=== PATIENT | female | born 1955 | race Caucasian/White ===

== ENCOUNTER 2016-12-28 15:57 | Observation (INO) ==
[2016-12-28] MEDS ORDERED: *HR* HYDROmorphone (PF) 1 MG/ML SYRINGE IM ONE ×2 (16:05→17:57)
[2016-12-28] MEDS ORDERED: Ibuprofen 600 MG TABLET PO ONE (16:05)
[2016-12-28] MEDS ORDERED: Ondansetron ODT 4 MG TAB.RAPDIS SL ONE (16:51)
--- NOTE | 2016-12-28 16:54 | Emergency Department Note ---
Disposition Clinical Impression: Intractable back pain, Paresthesia of right lower extremity Low back pain Qualifiers: Chronicity: chronic Back pain laterality: right Sciatica presence: with sciatica Sciatica laterality: sciatica of right side Qualified Code(s): M54.41 - Lumbago with sciatica, right side Disposition: Admitted As Inpatient Condition: Good Instructions: Chronic Back Pain (ED) Reasons to Return/Additional Instructions: Please return immediately for any new or worsening symptoms such as pain, fever , weakness or numbness, or incontinence. Otherwise, please take your medications as directed and follow-up with bone and joint within 1-2 weeks for recheck. Prescriptions: Cyclobenzaprine [Flexeril] 10 mg PO TID PRN #15 tablet PRN Reason: pain Referrals: NO,PCP [Non-Partnered Physician] - Leeanna Weaver MD [Partnered Physician] - Forms: ED Satisfaction Letter Time of Disposition: 17:41 General Adult HPI - General Chief complaint: ED Extremity Problem,Nontraumatic Stated complaint: Right hip pain Time Seen by Provider: 12/28/16 16:04 Source: patient, family, EMS Mode of arrival: ambulatory Limitations: no limitations Nursing Notes Reviewed: Yes Vital Signs Reviewed: Yes - History of Present Illness HPI Narrative: 61-year-old female past medical history of diabetes presents with acute on chronic low back pain and right hip pain that radiates down her right lower extremity. She states that the pain has been going on for over a year intermittently and has been worse for the last couple weeks since she came back from vacation. She states it is much more severe today. It is worse with walking and palpation of the low back. It is not associated with any chest pain , shortness of breath, fever or chills, cough, vision problems, weakness, abdominal pain, incontinence of stool or urine. She denies any calf pain or swelling. She notes chronic mild diabetic foot neuropathy along with worsened paresthesias to the right leg over the last 24 hours. She notes that her right leg is slightly longer than her left so she thought she could improve her symptoms yesterday by walking around with issue only on her left foot. She believes this may have worsened her symptoms. Denies any falls or other injuries. She states that she has had an x-ray for this in the remote past but no advanced imaging. No history of cancer. No history of aneurysm. Pain Scale: 10 - Related Data Home Medications Medication Instructions Recorded Confirmed Albuterol Inhaler 01/19/16 Glipizide 01/19/16 01/19/16 Metformin 01/19/16 Previous Rx's Medication Instructions Recorded Sulfamethoxazole/Trimeth DS 1 each PO BID #14 tablet 01/19/16 [Bactrim DS] Cyclobenzaprine [Flexeril] 10 mg PO TID PRN #15 tablet 12/28/16 Allergies Allergy/AdvReac Type Severity Reaction Status Date / Time codeine Allergy Rash Verified 12/28/16 16:10 All systems ED: reviewed and negative except as stated. Past Medical History - Past Medical History Attestation: Yes The following information was validated with the patient. Source: patient Medical history: Reports: DVT, diabetes, hypertension Psychiatric history: Reports: no psych history - Social History Smoking Status: Never smoker Smokeless Tobacco Status: No Alcohol use: Reports: none Drug use: Reports: none Physical Exam - Head Head exam: atraumatic, normocephalic, normal inspection - Eye Eye exam: Present: normal appearance, PERRL, EOMI - ENT ENT exam: normal exam, normal oropharynx, mucous membranes moist - Neck Neck exam: Present: normal inspection, full ROM, trachea midline - Chest Chest inspection: Present: normal inspection, symmetric chest wall rise - Respiratory Respiratory exam: Clear to auscultation bilaterally without wheezes rales or rhonchi Cardiovascular Cardiovascular exam: Present: regular rate, normal rhythm, normal heart sounds - Abdominal Exam Abdominal exam: Present: soft, Non-Tender. Absent: tenderness, distention, guarding, rebound, rigidity - Extremities Exam Shows leg raise positive on the right. There is no calf tenderness. Normal motor and sensory exam in the bilateral legs. Normal reflexes bilaterally. Exam is limited by obesity, there is no definite hip tenderness. - Back Exam Back exam: Present: normal inspection, full ROM. Mild diffuse lumbar tenderness without obvious deformity. - Neurological Exam Neurological exam: Present: alert, oriented X3, CN II-XII intact - Psychiatric Psychiatric exam: Present: normal affect, normal mood - Skin Skin exam: Present: warm, dry, intact, normal color - General Limitations: no limitations General appearance: alert, in no apparent distress Course - Reevaluation(s) Reevaluation #1: Symptoms improved with medications. Lumbar CT shows disc protrusion to the right at L4-L5 that is likely consistent with the patient's sciatic on the right side. Hip x-ray is grossly normal. Although patient's pain improved momentarily, the patient was unable to ambulate secondary to paresthesias and worsening pain when she tried to walk. Patient was given option of return home with steroids and muscle relaxers versus admission to the hospital for intractable pain and inability to walk. Patient does not feel safe to return home, family is present in the room states that he would not be able to help her around the house. Patient will be admitted to the hospitalist for further care and evaluation of her symptoms with possible MRI in the future. Time: 17:41 Vital Signs Temperature 98.3 F 12/28/16 15:59 Pulse Rate 84 12/28/16 15:59 Respiratory Rate 18 12/28/16 15:59 Blood Pressure 174/74 12/28/16 15:59 O2 Sat by Pulse Oximetry 97 12/28/16 15:59 Temperature 98.3 F 12/28/16 15:59 Pulse Rate 81 12/28/16 19:21 Respiratory Rate 18 12/28/16 19:21 Blood Pressure 122/62 12/28/16 19:21 O2 Sat by Pulse Oximetry 94 12/28/16 19:21 Oxygen Delivery Oxygen Delivery Room Air Medical Decision Making - Medical Records Medical records reviewed: Yes I reviewed the patient's medical records. - Lab Data Lab results reviewed: Yes I reviewed the patient's lab results. Lab Results 12/28/16 12/28/16 Range/Units 16:48 17:00 POC Glucose 141 H (58-89) Urine Color Yellow (Yellow) Urine Clarity Clear (Clear) Urine pH 6.5 (5.0-8.0) pH Units Ur Specific [place] 1.014 (1.010-1.025) Urine Protein Negative (Neg-Trace) mg/dL Urine Glucose (UA) Normal (Normal) mg/dL Urine Ketones Negative (Negative) mg/dL Urine Blood Negative (Negative) Urine Nitrite Negative (Negative) Urine Bilirubin Negative (Negative) Urine Urobilinogen Normal (Normal) mg/dL Ur Leukocyte Esterase Negative (Negative) Ur Culture Indicated? NO (NO) - Radiology Data Radiology results reviewed: Yes I reviewed the patient's radiology results. Attestation Statement - Attestation Attestation: I, Kai Esquivel, examined this patient and my medical decision-making was reviewed with the MACHINE TURNER/PA/Advanced Practice Nurse/Resident Physician. I agree with the documented findings, disposition and treatment plan as described except to the extent set forth below. 61-year-old female presents with concerns of increasing back pain and paresthesias of the right lower extremity. Patient states the symptoms have been worsening over the past month, family states that she has had a progressive decline of her mobility at home. Patient states she has had similar back pain back pain causing symptoms over the past few years intermittently. She states she has been unable to follow-up with her primary care provider and the chiropractor secondary to her morbid obesity. No trauma or cumulative trauma, no recent unexplained weight loss, immunosuppression, unexplained fever, IVDU, prolonged steroids, focal neurologic deficits with progress for disabling symptoms or perineal paresthesias or incontinence, and no history of AAA. CT of the lumbar spine shows possible disc herniation consistent with the patient's symptoms. Patient was given multiple doses of IV pain medication to control her symptoms. Patient states her pain did not improve however upon trying to ambulate she was unable to bear weight on the right lower extremity secondary to pain and paresthesias. Patient will be admitted to the hospital for further care and evaluation.
[2016-12-28 17:36] LABS: Bilirubin,Urine Negative (Negative); Blood,Urine Negative (Negative); Clarity,Urine Clear (Clear); Color,Urine Yellow (Yellow); Glucose,Urine (UA) Normal (Normal); Ketones,Urine Negative (Negative); Leukocyte Esterase,Urine Negative (Negative); Nitrite,Urine Negative (Negative); PH,Urine 6.5 pH Units (5.0-8.0); Protein,Urine Negative (Neg-Trace); Specific Gravity,Urine 1.014 (1.010-1.025); Urobilinogen,Urine Normal (Normal)
[2016-12-28] MEDS ORDERED: predniSONE 20 MG TABLET PO ONE (17:56)
[2016-12-28 19:44] LABS: Basophils % 0.3 %; Eosinophils # 0.1 K/mcL (0.0-0.6); Hematocrit 40.2 % (35.3-44.9); Hemoglobin 13.2 g/dL (11.5-15.4); Immature Granulocytes % 0.3 % (0-4); Immature Platelets 4.1 % (1.1-6.1); Lymphocytes # 2.8 K/mcL (0.6-4.6); Mean Corpuscular HGB Conc 32.8 g/dL (31.6-35.5); Mean Corpuscular Hemoglobin 28.9 pg (28.0-33.3); Mean Platelet Volume 10.2 fL (9.4-12.4); Monocytes # 0.6 K/mcL (0.0-1.3); Monocytes % 5.1 %; Neutrophils # 8.4 K/mcL (1.6-8.9); Platelet Count 311 K/mcL (140-400); Red Blood Count 4.57 M/mcL (3.82-4.97); Red Cell Distribution Width 13.7 % (11.5-14.5); Segmented Neutrophils % 70.3 %
[2016-12-28 19:56] LABS: BUN/Creatinine Ratio 21 (6-26); Blood Urea Nitrogen 14 mg/dL (7-20); Calcium 9.7 mg/dL (8.6-10.8); Carbon Dioxide 26 mEq/L (19-29); Chloride 104 mEq/L (98-109); Glucose 150 mg/dL (70-99); Osmolality,Calculated 291 (280-300); Sodium 139 mEq/L (136-145); eGFR For African Americans > 60 (> 60); eGFR For Non-African Americans > 60 (> 60)
[2016-12-28] MEDS ORDERED: Naloxone 0.4 MG/ML INJ IVP PRN (21:21)
[2016-12-28] MEDS ORDERED: Ondansetron 4 MG/2 ML VIAL IVP PRN (21:21)
[2016-12-28] MEDS ORDERED: *HR* Morphine 2 MG/ML SYRINGE IVP PRN (21:21)
[2016-12-28] MEDS ORDERED: Dextrose Gel 15 GM PO PRN ×2 (21:28)
[2016-12-28] MEDS ORDERED: *HR* Dextrose 50 % in Water (Syg) 50 ML SYRINGE IVP PRN (21:28)
[2016-12-28] MEDS ORDERED: D5% in Water 1,000 ML IVC PRN (21:28)
--- NOTE | 2016-12-28 21:28 | Internal Med History&Physical ---
Date of Encounter: 12/28/16 Time of Encounter: 21:30 Assessment and Plan (1) Intractable back pain Current visit: Yes Status: Acute Acute on chronic back pain - radiating to right lower extremity Place in observation for pain management CT of the lumbar spine negative for acute fracture but show multilevel degenerative disc disease continue IV morphine when necessary, IV Solu-Medrol and muscle relaxants Hip x-ray negative for acute arches abnormality but does show multifocal degenerative disease (2) Sciatica of right side Current visit: Yes Status: Acute Acute on chronic lower back pain Multilevel degenerative disc disease (3) Type 2 diabetes mellitus Current visit: Yes Status: Chronic Family diabetes, insulin-dependent, hyperglycemia Sliding-scale insulin, glucose checks, Levemir Qualifiers: Diabetes mellitus complication status: without complication Diabetes mellitus fdc insulin use: with terminal manager use Qualified Code(s): E11.9 - Type 2 diabetes mellitus without complications; Z79.4 - retirement (current) use of insulin (4) Morbid obesity with BMI of 50.0-59.9, adult Current visit: Yes Status: Chronic (5) DVT prophylaxis Current visit: Yes Status: Acute Continue heparin subcutaneous Internal Medicine - H&P: HPI Chief complaint: Low back pain and spasm Admitted From: Emergency Dept History of present illness: Ms. Ponce is a 61 year old female with past medical history of hypertension, asthma and diabetes. She was initially we will complains of occasional chronic low back pain and right hip pain. Patient states the pain radiates down her right lower extremity. Patient does have chronic back pain and has been worsening over the past few weeks to months. Patient states this episode started last night and has gradually worsened. She states she has had difficulty walking because of the pain in his arm and unable to stand up. Patient denies incontinence and stool or urine. Denies calf pain or swelling. She does have chronic paresthesias. patient apparently uses a special shoe when she does walk this is because her right leg is slightly warmer than the left. She rates the pain about 8/10 intensity. It radiates to the left side of back and down her lower extremity. Pain and spasm and tenderness are mainly on the right lower back. No relieving factors. Aggravated with movement and while standing up. No other associated symptoms. On examination patient is awake and alert. Not in any distress. She is able to provide all history. No family members. Patient is being placed in observation for intractable back pain and sciatica. She will be on IV morphine as needed and also IV Solu- Medrol and Flexeril. Patient has been explained about her condition and plan of care. Understood and agreed. No unanswered questions. CODE STATUS full code. Past Med Surg Social Fam HX - Past Medical History Medical history: asthma, diabetes, hypertension Psychiatric history: no psych history - Past Surgical History Surgical History: non-contributory - Social History Smoking Status: Never smoker Smokeless Tobacco Status: No Alcohol use: none Drug use: none - Family History Mother Hx Family Cardiac Disorders: Yes Internal Medicine - H&P: Meds Albuterol Sulfate [Albuterol Inhaler] 2 puff IH Q4HR PRN 01/19/16 [History] glipiZIDE [Glipizide] 10 mg PO BIDWM 01/19/16 [History] metFORMIN [Glucophage] 1,000 mg PO BIDWM 01/19/16 [History] Calcium Carbonate [Tums] 1,000 mg PO Q4HR PRN 12/28/16 [History] Insulin Glargine [Lantus] 38 unit SQ BID 12/28/16 [History] Losartan/HCTZ [Hyzaar 50-12.5 Tablet] 1 each PO HS 12/28/16 [History] Potassium 12/28/16 [History] Allergies codeine Allergy (Verified 12/28/16 16:10) Rash All Systems PM: A 10-system review of systems was performed and is negative for pertinent findings except as documented above in the HPI. - Constitutional Constitutional: as per HPI, no fatigue - EENT Eyes: no blurry vision - Cardiovascular Cardiovascular ROS IM: no chest pain, no diaphoresis, no dyspnea, no dyspnea on exertion, no lightheadedness, no orthopnea - Respiratory Respiratory: no cough, no dyspnea, no hemoptysis, no dyspnea on exertion, no chest congestion - Gastrointestinal Gastrointestinal: no abdominal pain, no constipation, no cramping, no diarrhea, no vomiting - Musculoskeletal Musculoskeletal ROS IM: arthralgias, back pain, myalgias, stiffness - Neurological Neurological ROS: no abnormal gait, no abnormal speech, no dizziness, no focal weakness, no loss of vision - Constitutional Vitals: Temp Pulse Resp BP Pulse Ox 97.7 F 81 18 126/77 94 12/28/16 21:10 06/25/17 21:10 12/28/16 21:10 12/28/16 21:10 12/28/16 21:10 General appearance: Present: A&O X 3, morbidly obese, pleasant, no acute distress, answers questions appropriately Exam: Patient lying flat in bed and is in discomfort due to back pain - Head Head exam: Present: atraumatic - Eye Eye exam: Present: EOMI - Neck Neck exam general surgery: Present: supple - Respiratory Respiratory exam: Present: CTAB. Absent: rales, rhonchi, wheezes - Cardiovascular Cardiovascular exam: Present: RRR, +S1, +S2 - GI/Abdominal GI/Abdominal exam: Present: soft. Absent: distended, firm, guarding, tenderness Additional comments: Obese - Extremities Exam Extremities exam: Present: full ROM, pedal edema (Mild), radial pulses palpable and symetrical. Absent: cyanotic, tenderness - Back Exam Back exam: Present: CVA tenderness (R), muscle spasm, paraspinal tenderness, tenderness, vertebral tenderness - Neurological Exam Neurological exam: Present: alert, oriented X3, no focal deficits Internal Med - H&P Results - Labs CBC & Chem 7: 12/28/16 19:37 12/28/16 19:37
[2016-12-28] MEDS ORDERED: INSULIN GLARGINE 38 UNIT SQ SCH (21:30)
[2016-12-28] MEDS: MethylPREDNISolone 40 MG/ML VIAL IVP SCH (23:37)
[2016-12-29] MEDS: Acetaminophen 325 MG TABLET PO PRN ×2 (03:03→08:15)
[2016-12-29 04:10] LABS: Basophils % 0.2 %; Hematocrit 40.4 % (35.3-44.9); Hemoglobin 13.5 g/dL (11.5-15.4); Immature Granulocytes % 0.7 % (0-4); Lymphocytes # 1.4 K/mcL (0.6-4.6); Lymphocytes % 12.2 %; Mean Corpuscular HGB Conc 33.4 g/dL (31.6-35.5); Mean Corpuscular Hemoglobin 29.6 pg (28.0-33.3); Mean Corpuscular Volume 88.6 fL (83.0-100.0); Mean Platelet Volume 10.7 fL (9.4-12.4); Monocytes # 0.1 K/mcL (0.0-1.3); Monocytes % 0.5 %; Neutrophils # 9.7 K/mcL (1.6-8.9); Platelet Count 276 K/mcL (140-400); Red Blood Count 4.56 M/mcL (3.82-4.97); Red Cell Distribution Width 13.9 % (11.5-14.5); Segmented Neutrophils % 86.4 %
[2016-12-29] MEDS: *HR* Heparin 5,000 UNIT/ML VIAL SQ SCH ×2 (06:17→17:33)
[2016-12-29] MEDS ORDERED: Ketorolac 15 MG/ML VIAL IVP ONE (06:35)
[2016-12-29] MEDS: MethylPREDNISolone 40 MG/ML VIAL IVP SCH ×2 (08:02→15:40)
[2016-12-29] MEDS: Insulin LISPRO 300 UNITS/3 ML VIAL SQ SCH ×3 (08:02→17:33)
[2016-12-29] MEDS: Famotidine 20 MG TABLET PO SCH ×2 (08:02→21:23)
[2016-12-29] MEDS: Insulin DETEMIR 100 UNIT/ML X5UNITS SQ SCH ×2 (10:04→21:25)
[2016-12-29] MEDS ORDERED: *HR* HYDROmorphone (PF) 1 MG/ML SYRINGE IVP ONE (10:12)
[2016-12-29] MEDS ORDERED: *HR* Morphine 2 MG/ML SYRINGE IVP PRN (14:28)
--- NOTE | 2016-12-29 14:29 | Internal Med Progress Note ---
Date of Encounter: 12/29/16 Time of Encounter: 14:29 - Assessment and plan (1) Intractable back pain Current Visit: Yes Status: Acute Assessment and plan: Acute on chronic worsening of lower back pain secondary to sciatica continue pain control MR L[facility] spine requested by Dr. Law. He will see the patient later today continue supportive care continue systemic steroids increase activity as tolerated (2) Sciatica of right side Current Visit: Yes Status: Chronic Assessment and plan: management as listed above (3) Hypertension Current Visit: Yes Status: Chronic Assessment and plan: BP within acceptable range continue home meds continue to monitor Qualifiers: Hypertension type: essential hypertension Qualified Code(s): I10 - Essential (primary) hypertension (4) DVT prophylaxis Current Visit: Yes Status: Acute Assessment and plan: Heparin sQ (5) Morbid obesity with BMI of 50.0-59.9, adult Current Visit: Yes Status: Chronic (6) Type 2 diabetes mellitus Current Visit: Yes Status: Chronic Assessment and plan: Noted to be hyperglycemic, likely secondary to steroid therapy will continue sliding scale insulin algorithm and closely monitor FS and BG Qualifiers: Diabetes mellitus complication status: without complication Diabetes mellitus role player insulin use: with nursing home use Qualified Code(s): E11.9 - Type 2 diabetes mellitus without complications; Z79.4 - intermediate (current) use of insulin - Subjective Interval history: Patient seen and examined with family present at bedside. Reports of having adequate pain relief with dilaudid. Reports of nausea with PO pain meds. CT L spine shows degenerative changes without any acute fractures. Dr. Law consulted for pain management. - Constitutional Vitals: Temp Pulse Resp BP Pulse Ox 97.5 F L 67 14 115/66 91 12/29/16 10:51 12/29/16 10:51 12/29/16 10:51 12/29/16 10:51 12/29/16 10:51 General appearance: Present: A&O X 3, morbidly obese, pleasant, no acute distress, answers questions appropriately - Head Head exam: Present: atraumatic, normocephalic - Eye Eye exam: Present: conjuntiva pink, sclera anicteric - Respiratory Respiratory exam: Present: CTAB. Absent: respiratory distress, wheezes - Cardiovascular Cardiovascular exam: Present: RRR, +S1, +S2. Absent: diastolic murmur, gallop, rubs, systolic murmur - GI/Abdominal GI/Abdominal exam: Present: distended (obese), normal bowel sounds, soft, no peritoneal signs. Absent: tenderness - Extremities Exam Extremities exam: Present: warm, radial pulses palpable and symetrical. Absent : calf tenderness, cyanotic, pedal edema - Neurological Exam Neurological exam: Present: alert, oriented X3, no focal deficits, strengths equal and symetr throughout. Absent: motor sensory deficit, pronater drift - Psychiatric Psychiatric exam: Present: normal affect, normal mood Internal Medicine: Result - Labs CBC & Chem 7: 12/29/16 03:54 12/28/16 19:37 Labs: Short CBC 12/29/16 Range/Units 03:54 WBC 11.2 H (4.3-11.1) K/mcL Hgb 13.5 (11.5-15.4) g/dL Hct 40.4 (35.3-44.9) % Plt Count 276 (140-400) K/mcL Neutrophils # 9.7 H (1.6-8.9) K/mcL Consult Discharge Plan - Plan Referrals: Emma Adler, [employer] [Primary Care Provider] -
[2016-12-29] MEDS: *HR* HYDROmorphone (PF) 1 MG/ML SYRINGE IVP PRN ×2 (15:40→19:55)
[2016-12-29] MEDS ORDERED: Losartan/HCTZ 50-12.5 TABLET PO SCH (21:00)
[2016-12-29] MEDS ORDERED: Insulin LISPRO 300 UNITS/3 ML VIAL SQ SCH ×2 (21:00)
[2016-12-30] MEDS: MethylPREDNISolone 40 MG/ML VIAL IVP SCH ×3 (00:03→17:17)
[2016-12-30] MEDS: *HR* HYDROmorphone (PF) 1 MG/ML SYRINGE IVP PRN ×3 (00:47→11:30)
[2016-12-30] MEDS: *HR* Heparin 5,000 UNIT/ML VIAL SQ SCH ×2 (05:51→17:19)
--- NOTE | 2016-12-30 07:26 | Pain Management History & Phys ---
Date of Encounter: 12/30/16 Time of Encounter: 07:26 Assessment and Plan (1) Right hip pain Current Visit: Yes Status: Acute The assessment and plan as outlined above was discussed with the patient who expressed understanding and agreement. All questions were answered. Evaluation the patient, I feel as though the acuity of the pain in the right sided buttocks and hip appears to be emanating from the sacroiliac joint. I understand the patient has suggestion of serious lumbar stenosis on CT scan, but classically she has right buttock pain rating to the right groin and anterior thigh. This strongly could suggest right intra-articular hip joint problems. An orthopedic consultation might be helpful (2) Sciatica of right side Current Visit: Yes Status: Chronic The assessment and plan as outlined above was discussed with the patient and/or family members who expressed understanding and agreement. All questions were answered. After discussing with the patient her CT scan results, I recommend the patient be seen in rehabilitation and then follow up with me as an outpatient whereby we could order a lumbar MRI (open) and move forward from there. At this time, injection or treatment within the hospital setting is not clearly warranted. History of Present Illness Chief complaint: Back pain, right hip pain HPI: Ms. Ponce is a 61 year old female Patient was seen today at bedside. The patient complained of 6 months worsening right low back and buttock pain rating to the right groin and right thigh. The pain is sharp and stabbing and worse with activity and relieved with rest. Patient was unable to take care of herself ultimately coming to the hospital where she was admitted for pain control. The patient was due to undergo a lumbar CT scan. It was recommended the patient undergo MRI but she has severe claustrophobia. She states today the pain is improved over time. The patient stood up to show me that she can now walk today, and when I asked her to show me how she can raise up on her toes, she had sudden knee pain and the patient sat down on the ground. I supported the patient, and the patient did not want is in the bed but she sat on the floor. She reports she was not injured. She is been reporting no bowel or bladder dysfunction associated with her pain. Past Med Surg Social Fam HX - Past Medical History Medical history: asthma, diabetes, hypertension Psychiatric history: no psych history - Past Surgical History Surgical History: non-contributory - Social History Smoking Status: Never smoker Smokeless Tobacco Status: No Alcohol use: none Drug use: none - Family History Mother Hx Family Cardiac Disorders: Yes Medications and Allergies Albuterol Sulfate [Albuterol Inhaler] 2 puff IH Q4HR PRN 01/19/16 [History] glipiZIDE [Glipizide] 10 mg PO BIDWM 01/19/16 [History] metFORMIN [Glucophage] 1,000 mg PO BIDWM 01/19/16 [History] Calcium Carbonate [Tums] 1,000 mg PO Q4HR PRN 12/28/16 [History] Insulin Glargine [Lantus] 38 unit SQ BID 12/28/16 [History] Potassium 99 mg PO DAILY 12/28/16 [History] Losartan/Hydrochlorothiazide [Hyzaar 100-25 Tablet] 1 tab PO DAILY 12/29/16 [ History] Allergies codeine Allergy (Verified 12/28/16 16:10) Rash Review of Systems - Constitutional Constitutional ROS IM: as per HPI - EENT Nose, mouth and throat: no headache(s), no neck pain, no neck trauma - Cardiovascular Cardiovascular ROS: no chest pain, no leg edema, no lightheadedness - Respiratory Respiratory: no pain on inspiration, no pain with cough - Gastrointestinal Gastrointestinal: no abdominal pain, no constipation, no diarrhea, no heartburn - Genitourinary Genitourinary ROS: no difficulty urinating, no flank pain, no urinary hesitancy - Musculoskeletal Musculoskeletal ROS: abnormal gait, radiating pain into limb - Integumentary Integumentary: no erythema, no lesions, no swelling - Neurological Neurological ROS: abnormal gait, radicular pain - Psychiatric Psychiatric general: no anxiety, no confusion, no depression - Hematologic/Lymphatic Hematologic/Lymphatic pediatric: no easy bleeding, no easy bruising Physical Exam Initial Vital Signs Temp Pulse Resp BP Pulse Ox 98.3 F 84 18 174/74 97 12/28/16 15:59 12/28/16 15:59 12/28/16 15:59 12/28/16 15:59 12/28/16 15:59 - General physical appearance General physical appearance: awake & oriented, moderate pain - Eyes Eye exam: normal ocular movement - Respiratory normal respiratory effort, clear to auscultation - Cardiovascular Cardiovascular exam: Present: NR, regular rhythm, no murmurs/rubs/gallops - Abdomen Abdomen: soft, non tender, bowel sounds - Neurologic normal coordination - Musculoskeletal Musculoskeletal: other (Patient examination difficult due to severe right hip pain) Results - Labs 12/30/16 07:46 12/30/16 07:46 Abnormal lab results WBC 11.2 K/mcL (4.3-11.1) H 12/29/16 03:54 Neutrophils # 9.7 K/mcL (1.6-8.9) H 12/29/16 03:54 Glucose 150 mg/dL (70-99) H 12/28/16 19:37 POC Glucose 239 (58-89) H 12/29/16 20:14 All other labs normal. - Imaging Additional studies: Reviewed the patient's CT of her lumbar spine. Suggestion of lumbar stenosis was reviewed per the radiology report.
[2016-12-30 08:35] LABS: BUN/Creatinine Ratio 20 (6-26); Blood Urea Nitrogen 17 mg/dL (7-20); Calcium 9.6 mg/dL (8.6-10.8); Carbon Dioxide 25 mEq/L (19-29); Chloride 102 mEq/L (98-109); Glucose 252 mg/dL (70-99); Osmolality,Calculated 300 (280-300); Phosphorous 3.2 mg/dL (2.3-4.7); Potassium 4.1 mEq/L (3.5-4.5); Sodium 140 mEq/L (136-145); eGFR For African Americans > 60 (> 60); eGFR For Non-African Americans > 60 (> 60)
[2016-12-30] MEDS: Insulin LISPRO 300 UNITS/3 ML VIAL SQ SCH ×3 (08:57→17:17)
[2016-12-30] MEDS: Famotidine 20 MG TABLET PO SCH (08:58)
[2016-12-30 09:01] LABS: Basophils % 0.2 %; Hematocrit 44.5 % (35.3-44.9); Hemoglobin 14.2 g/dL (11.5-15.4); Immature Granulocytes % 1.4 % (0-4); Lymphocytes % 20.8 %; Mean Corpuscular HGB Conc 31.9 g/dL (31.6-35.5); Mean Corpuscular Hemoglobin 28.8 pg (28.0-33.3); Mean Corpuscular Volume 90.3 fL (83.0-100.0); Mean Platelet Volume 10.9 fL (9.4-12.4); Monocytes # 0.4 K/mcL (0.0-1.3); Monocytes % 2.2 %; Platelet Count 400 K/mcL (140-400); Red Blood Count 4.93 M/mcL (3.82-4.97); Red Cell Distribution Width 13.8 % (11.5-14.5); Segmented Neutrophils % 75.4 %
[2016-12-30 09:04] LABS: Neutrophils # 14.5 K/mcL (1.6-8.9)
[2016-12-30] MEDS: Insulin DETEMIR 100 UNIT/ML X5UNITS SQ SCH (09:04)
--- NOTE | 2016-12-30 15:44 | Internal Med Progress Note ---
Date of Encounter: 12/30/16 Time of Encounter: 15:40 - Assessment and plan (1) Intractable back pain Current Visit: Yes Status: Acute Assessment and plan: Acute on chronic worsening of lower back pain secondary to sciatica pain much controlled now. MR [facility] spine requested by Dr. Law. however was not done as patient has severe claustropobia. continue supportive care continue systemic steroids, seen by pain mx, recommend dc to rehab, await social work increase activity as tolerated (2) Morbid obesity with BMI of 50.0-59.9, adult Current Visit: Yes Status: Chronic (3) Sciatica of right side Current Visit: Yes Status: Chronic Assessment and plan: management as listed above (4) Type 2 diabetes mellitus Current Visit: Yes Status: Chronic Assessment and plan: Noted to be hyperglycemic, likely secondary to steroid therapy will continue sliding scale insulin algorithm and closely monitor FS and BG Qualifiers: Diabetes mellitus complication status: without complication Diabetes mellitus intermediate card tender insulin use: with intermediate use Qualified Code(s): E11.9 - Type 2 diabetes mellitus without complications; Z79.4 - half-way (current) use of insulin (5) Hypertension Current Visit: Yes Status: Chronic Assessment and plan: BP within acceptable range continue home meds continue to monitor Qualifiers: Hypertension type: essential hypertension Qualified Code(s): I10 - Essential (primary) hypertension - Subjective Interval history: Patient seen at the bedside, admitted for intractable back pain, reports that the pain is better however comes back when she stands up or walks. Appreciate pain management recommendations. Patient to be discharged to rehabilitation once accepted. - Constitutional Vitals: Temp Pulse Resp BP Pulse Ox 97.8 F 65 17 150/81 96 12/30/16 10:58 12/30/16 10:58 12/30/16 10:58 12/30/16 10:58 12/30/16 10:58 General appearance: Present: A&O X 3, morbidly obese, pleasant, no acute distress, answers questions appropriately Exam: - Head Head exam: Present: atraumatic, normocephalic - Eye Eye exam: Present: conjuntiva pink, sclera anicteric - Respiratory Respiratory exam: Present: CTAB. Absent: respiratory distress, wheezes - Cardiovascular Cardiovascular exam: Present: RRR, +S1, +S2. Absent: diastolic murmur, gallop, rubs, systolic murmur - GI/Abdominal GI/Abdominal exam: Present: distended (obese), normal bowel sounds, soft, no peritoneal signs. Absent: tenderness - Extremities Exam Extremities exam: Present: warm, radial pulses palpable and symetrical. Absent : calf tenderness, cyanotic, pedal edema - Neurological Exam Neurological exam: Present: alert, oriented X3, no focal deficits, strengths equal and symetr throughout. Absent: motor sensory deficit, pronater drift - Psychiatric Psychiatric exam: Present: normal affect, normal mood Internal Medicine: Result - Labs CBC & Chem 7: 12/30/16 07:46 12/30/16 07:46 Labs: Short CBC 12/30/16 Range/Units 07:46 WBC 19.2 H D (4.3-11.1) K/mcL Hgb 14.2 (11.5-15.4) g/dL Hct 44.5 (35.3-44.9) % Plt Count 400 (140-400) K/mcL Neutrophils # 14.5 H (1.6-8.9) K/mcL BMP 12/30/16 07:46 Sodium 140 Potassium 4.1 Chloride 102 Carbon Dioxide 25 BUN 17 Creatinine 0.84 Glucose 252 H Calcium 9.6 Consult Discharge Plan - Plan Referrals: Emma Adler, [employer] [facility] [employer] [Primary Care Provider] -
--- NOTE | 2016-12-30 16:42 | Discharge Summary ---
Date of Encounter: 12/30/16 Time of Encounter: 16:37 - Discharge Diagnosis (1) Intractable back pain Priority: Primary Status: Acute (2) Morbid obesity with BMI of 50.0-59.9, adult Priority: Secondary Status: Chronic (3) Sciatica of right side Priority: Primary Status: Chronic (4) Type 2 diabetes mellitus Priority: Secondary Status: Chronic Qualifiers: Diabetes mellitus complication status: without complication Diabetes mellitus exterminator helper insulin use: with exterminator helper use Qualified Code(s): E11.9 - Type 2 diabetes mellitus without complications; Z79.4 - buttermaker helper (current) use of insulin (5) Hypertension Priority: Secondary Status: Chronic Qualifiers: Hypertension type: essential hypertension Qualified Code(s): I10 - Essential (primary) hypertension - Discharge Medications Prescriptions: OxyCODONE ER (12 HR) [OxyCONTIN] 10 mg PO Q8HR #90 tab.er.12h Home Medications: Albuterol Sulfate [Albuterol Inhaler] 2 puff IH Q4HR PRN 01/19/16 [History] glipiZIDE [Glipizide] 10 mg PO BIDWM 01/19/16 [History] metFORMIN [Glucophage] 1,000 mg PO BIDWM 01/19/16 [History] Calcium Carbonate [Tums] 1,000 mg PO Q4HR PRN 12/28/16 [History] Insulin Glargine [Lantus] 38 unit SQ BID 12/28/16 [History] Potassium 99 mg PO DAILY 12/28/16 [History] Losartan/Hydrochlorothiazide [Hyzaar 100-25 Tablet] 1 tab PO DAILY 12/29/16 [ History] OxyCODONE ER (12 HR) [OxyCONTIN] 10 mg PO Q8HR #90 tab.er.12h 12/30/16 [Rx] Allergies/Adverse Reactions: Allergies codeine Allergy (Verified 12/28/16 16:10) Rash Procedures/tests Complete & Pending: Procedures Performed prior 72 hours Category Date Time Status MR lumbar spine wo con [MR] Stat MRI 12/29/16 12:20 Ordered EKG [ECG 12 lead ECG] [ECG] Routine Y 12/28/16 21:25 Ordered Date of admission: 12/28/16 19:56 Primary care physician: Emma Adler CNP Consults: 12/28/16 21:23 Consult to Physical Therapy [CONS] Routine Comment: Evaluate, develop and implement POC Reason for Consult: pt eval Consult to Studio Artist [CONS] Routine Reason for SW Consult: d/c planning 12/29/16 08:20 Consult to Pain Management [CONS] Routine Consulting Provider: Lucien Khan Reason for Consult: intractable back pain Call Completed: Yes Consult to Physician [CONS] Routine Consulting Provider: Oneil Law Reason for Consult: intractable back pain Call Completed: Yes Discharging clinician: Blaine Fajardo Anticipated date of discharge: 12/30/16 - Patient Status Disposition: Transfer Inpatient Rehab Fac Condition: Good Functional capacity at discharge: independent ambulation Overall status at discharge: patient is progressing back to baseline - Discharge Instructions Follow Up With: Emma Adler, [employer] [Primary Care Provider] - - Diet and Activity Activity: as per physical therapy Diet: advance to your usual diet Interval History: Ms. Ponce is a 61 year old female with past medical history of hypertension, asthma and diabetes. She was initially we will complains of occasional chronic low back pain and right hip pain. Patient states the pain radiates down her right lower extremity. Patient does have chronic back pain and has been worsening over the past few weeks to months. she was admitted for Acute on chronic back pain - radiating to right lower extremity Placed in observation for pain management CT of the lumbar spine negative for acute fracture but show multilevel degenerative disc disease. pain maagement was consulted and recommneded inpt. rehab with MRI (which could not be done this time as she is claustrophobic). she reports that the pain is better when she lies still in the bed, she is being dc to rehab in stable condition Hospital course: Ms. Ponce is a 61 year old female - Time Spent with Patient Total time spent providing and/or coordinating discharge services: - Constitutional Vitals: Temp Pulse Resp BP Pulse Ox 98.1 F 64 16 117/66 97 12/30/16 16:11 12/30/16 16:11 12/30/16 16:11 12/30/16 16:11 12/30/16 16:11 General appearance: Present: A&O X 3, morbidly obese, pleasant, no acute distress, answers questions appropriately Exam: - Head Head exam: Present: atraumatic - Eye Eye exam: Present: EOMI - Neck Neck exam general surgery: Present: supple - Respiratory Respiratory exam: Present: CTAB. Absent: rales, rhonchi, wheezes - Cardiovascular Cardiovascular exam: Present: RRR, +S1, +S2 - GI/Abdominal GI/Abdominal exam: Present: soft. Absent: distended, firm, guarding, tenderness Additional comments: Obese - Extremities Exam Extremities exam: Present: full ROM, pedal edema (Mild), radial pulses palpable and symetrical. Absent: cyanotic, tenderness - Back Exam Back exam: Present: CVA tenderness (R), muscle spasm, paraspinal tenderness, tenderness, vertebral tenderness - Neurological Exam Neurological exam: Present: alert, oriented X3, no focal deficits
--- NOTE | 2016-12-30 16:44 | Physician Discharge Referral ---
ExtendedCare Referral Info Transfer To: [facility] Provider in Charge: marjorie alberts Institutional Level of Care: Intermediate - Diagnosis (1) Intractable back pain Status: Acute (2) Morbid obesity with BMI of 50.0-59.9, adult Status: Chronic (3) Sciatica of right side Status: Chronic (4) Type 2 diabetes mellitus Status: Chronic (5) Hypertension Status: Chronic - Transfer Medications Prescriptions: OxyCODONE ER (12 HR) [OxyCONTIN] 10 mg PO Q8HR #90 tab.er.12h Home Medications: Albuterol Sulfate [Albuterol Inhaler] 2 puff IH Q4HR PRN 01/19/16 [History] glipiZIDE [Glipizide] 10 mg PO BIDWM 01/19/16 [History] metFORMIN [Glucophage] 1,000 mg PO BIDWM 01/19/16 [History] Calcium Carbonate [Tums] 1,000 mg PO Q4HR PRN 12/28/16 [History] Insulin Glargine [Lantus] 38 unit SQ BID 12/28/16 [History] Potassium 99 mg PO DAILY 12/28/16 [History] Losartan/Hydrochlorothiazide [Hyzaar 100-25 Tablet] 1 tab PO DAILY 12/29/16 [ History] OxyCODONE ER (12 HR) [OxyCONTIN] 10 mg PO Q8HR #90 tab.er.12h 12/30/16 [Rx] Allergies/Adverse Reactions: Allergies codeine Allergy (Verified 12/28/16 16:10) Rash - Respiratory Orders Smoking Cessation: Smoking cessation has been advised. For more information, call the [place] Tobacco Quit Line at 0-358-DENC-NOW. - Advance Directives Code Status: Full Code - Mobility Orders Chair, Ambulate - Rehabiliation Orders Rehab Potential: Fair Rehab Orders: Evaluation for Physical Therapy, Evaluation for Occupational Therapy - Diet Orders Regular CERTIFICATION: I certify that the transfer of the above named patient to an Extended Care Facility is necessary for the continuing treatment of the diagnosis listed. The above information is true and accurate reflection of patient's current condition. Confidential - Redisclosure prohibited without a patient's written consent.
[2016-12-30] MEDS ORDERED: *HR* OxyCODONE Immed Rel 5 MG TABLET PO ONE (18:16)
[2016-12-30] MEDS ORDERED: Ondansetron ODT 4 MG TAB.RAPDIS SL ONE (18:39)
[2016-12-30 19:43] VITALS: BP 148/73
== END 2016-12-30 20:10 ==
LOC: EMEROO 15:57 → 3BNU 15:57 → SUATTDRO 19:56 → 3BNU 20:19
PROVIDERS: ADMIT Family Medicine; ATTEND Internal Medicine

== ENCOUNTER 2020-10-05 20:20 | Observation (INO) ==
[2020-10-05 21:23] LABS: Basophils # 0.1 K/mcL (0.0-0.2); Basophils % 0.5 %; Eosinophils # 0.3 K/mcL (0.0-0.6); Hemoglobin 14.2 g/dL (11.5-15.4); Immature Granulocytes % 0.4 % (0-4); Lymphocytes # 2.2 K/mcL (0.6-4.6); Lymphocytes % 20.7 %; Mean Corpuscular HGB Conc 32.3 g/dL (31.6-35.5); Mean Corpuscular Hemoglobin 29.3 pg (28.0-33.3); Mean Corpuscular Volume 90.9 fL (83.0-100.0); Mean Platelet Volume 10.7 fL (9.4-12.4); Monocytes # 0.9 K/mcL (0.0-1.3); Monocytes % 8.4 %; Platelet Count 312 K/mcL (140-400); Red Blood Count 4.84 M/mcL (3.82-4.97); Red Cell Distribution Width 13.7 % (11.5-14.5); White Blood Count 10.5 K/mcL (4.3-11.1)
[2020-10-05 21:41] LABS: BUN/Creatinine Ratio 18 (6-26); Blood Urea Nitrogen 12 mg/dL (8-23); Calcium 9.6 mg/dL (8.6-10.3); Carbon Dioxide 27 mEq/L (23-29); Chloride 104 mEq/L (98-107); Glucose 192 mg/dL (70-105); Magnesium 1.7 mg/dL (1.6-2.6); Osmolality,Calculated 291 (280-300); Phosphorous 2.5 mg/dL (2.7-4.5); Sodium 138 mEq/L (136-145); Troponin I < 0.03 ng/mL (< 0.04); eGFR For African Americans > 60 (> 60); eGFR For Non-African Americans > 60 (> 60)
[2020-10-05] MEDS: DilTIAZem 50 MG/50 ML IV.SOLN IVC SCH (21:46)
[2020-10-05] MEDS ORDERED: Naloxone 0.4 MG/ML INJ IVP PRN (22:06)
[2020-10-05] MEDS ORDERED: Melatonin 3 MG TABLET PO PRN (22:06)
[2020-10-05] MEDS ORDERED: Ondansetron 4 MG/2 ML VIAL IVP PRN (22:06)
[2020-10-05] MEDS ORDERED: Acetaminophen 325 MG TABLET PO PRN (22:06)
[2020-10-05] MEDS ORDERED: Perflutren Lipid Microsphere 1.3 ML in 0.9 % Sodium Chloride 8.7 ML IVP PRN (22:09)
[2020-10-05 22:31] LABS: INR 1.1; Prothrombin Time 12.2 Seconds (9.4-12.1)
[2020-10-05 22:33] LABS: Activated Partial Thrombo Time 31.5 Seconds (26.0-36.0)
[2020-10-05 22:41] LABS: Thyroid Stimulating Hormone 3.404 mcIU/mL (0.340-5.600)
[2020-10-06] MEDS: DilTIAZem 50 MG/50 ML IV.SOLN IVC SCH ×3 (01:08→09:06)
[2020-10-06 03:12] LABS: Alanine Aminotransferase 13 Units/L (7-52); Albumin 3.6 g/dL (3.5-5.7); Albumin/Globulin Ratio 1.2 (1.1-2.2); Alkaline Phosphatase 89 Units/L (34-104); Aspartate Amino Transferase 11 Units/L (13-39); BUN/Creatinine Ratio 21 (6-26); Bilirubin,Total 0.3 mg/dL (0.3-1.0); Blood Urea Nitrogen 14 mg/dL (8-23); Calcium 9.3 mg/dL (8.6-10.3); Carbon Dioxide 28 mEq/L (23-29); Chloride 103 mEq/L (98-107); Globulin 2.9 g/dL (2.4-3.5); Glucose 184 mg/dL (70-105); Magnesium 2.1 mg/dL (1.6-2.6); Osmolality,Calculated 293 (280-300); Phosphorous 3.3 mg/dL (2.7-4.5); Potassium 3.9 mEq/L (3.5-5.1); Sodium 139 mEq/L (136-145); Total Protein 6.5 g/dL (6.4-8.9); Troponin I < 0.03 ng/mL (< 0.04); eGFR For African Americans > 60 (> 60); eGFR For Non-African Americans > 60 (> 60)
[2020-10-06] MEDS ORDERED: *HR* Dextrose 50 % in Water (Vial) 50 ML VIAL IVP PRN (05:57)
[2020-10-06] MEDS ORDERED: Dextrose Gel 15 GM/37.5 ML TUBE PO PRN ×2 (05:57)
[2020-10-06] MEDS ORDERED: D5% in Water 1,000 ML IVC PRN (05:57)
[2020-10-06] MEDS ORDERED: *HR* Enoxaparin 40 MG/0.4 ML SYRINGE SQ SCH (06:00)
[2020-10-06] MEDS: Insulin LISPRO 300 UNITS/3 ML VIAL SUBQ SCH ×3 (06:24→17:15)
[2020-10-06] MEDS: DilTIAZem CD (24hr) 180 MG CAP.ER.24H PO SCH (09:11)
[2020-10-06 11:45] LABS: Estimated Average Glucose 163 mg/dl; Hemoglobin A1C 7.3 %
[2020-10-06] MEDS ORDERED: Insulin DETEMIR 100 UNIT/ML X5UNITS SUBQ SCH (21:00)
[2020-10-06] MEDS: Apixaban 5 MG TABLET PO SCH (21:02)
[2020-10-06] MEDS ORDERED: Insulin LISPRO 300 UNITS/3 ML VIAL SUBQ SCH (23:51)
[2020-10-07] MEDS ORDERED: Insulin LISPRO 300 UNITS/3 ML VIAL SUBQ SCH (07:30)
[2020-10-07 08:08] VITALS: BP 111/70
[2020-10-07] MEDS: Apixaban 5 MG TABLET PO SCH (08:11)
[2020-10-07] MEDS: DilTIAZem CD (24hr) 180 MG CAP.ER.24H PO SCH (08:11)
== END 2020-10-07 11:00 | disposition home or self-care (01) ==
LOC: EMEROOARM 20:20 → 2ANU 20:20
PROVIDERS: ADMIT Internal Medicine; ATTEND Internal Medicine